=== PATIENT | male | born 1955 | race Caucasian/White ===

== ENCOUNTER → 2016-09-24 | Outpatient (CLI) | payer OTHER ==
[2016-05-20 15:10] VITALS: BP 130/91
[~2016-09-24] MED LIST: ADULT LOW DOSE81 MG PO; CIALIS5 MG PO; COLACE100 MG PO; ENDUR-ACIN500 MG PO; FEROSUL325 M1 PO; FLAX OIL1000 M1 PO; FLEXERIL 1010 MG/TAB PO; FLONASE ALLERG9.9 ML NS; METFOMIN HYDRO850 MG PO; NATURAL SAW PA160 MG PO; NIZATIDINE300 MG PO; PROAIR RESPICL90 MCG INH; SYNTHROID RP0.088 MG PO; XANAX 0.5MG0.5 MG PO; ZYLOPRIM 300MG300 MG PO; ZYRTEC ALLERGY10 MG PO
== END ==
LOC: LAB 07:16
DX: E11.9 Type 2 diabetes mellitus without complications (principal); E03.4 Atrophy of thyroid (acquired); E78.2 Mixed hyperlipidemia; R73.9 Hyperglycemia, unspecified; E11.65 Type 2 diabetes mellitus with hyperglycemia; M1A.09X0 Idiopathic chronic gout, multiple sites, without tophus (tophi); Z80.42 Family history of malignant neoplasm of prostate

== ENCOUNTER → 2016-10-27 | Outpatient (CLI) | payer OTHER ==
[2016-05-20 15:10] VITALS: BP 130/91
== END ==
LOC: LAB 10:07
DX: Z00.00 Encounter for general adult medical examination without abnormal findings (principal); R19.5 Other fecal abnormalities; K21.9 Gastro-esophageal reflux disease without esophagitis; E03.4 Atrophy of thyroid (acquired); E11.9 Type 2 diabetes mellitus without complications; M1A.09X0 Idiopathic chronic gout, multiple sites, without tophus (tophi); J30.1 Allergic rhinitis due to pollen; E78.2 Mixed hyperlipidemia; E66.01 Morbid (severe) obesity due to excess calories

== ENCOUNTER → 2016-11-21 | Outpatient (CLI) | payer OTHER ==
[2016-05-20 15:10] VITALS: BP 130/91
== END ==
LOC: CARDREHAB 07:46
DX: E11.9 Type 2 diabetes mellitus without complications (principal); E66.01 Morbid (severe) obesity due to excess calories
CPT/HCPCS: A9500

== ENCOUNTER → 2016-12-01 | Outpatient (CLI) | payer OTHER ==
[2016-05-20 15:10] VITALS: BP 130/91
== END ==
LOC: RAD 08:26
DX: R50.9 Fever, unspecified (principal); R05 Cough

== ENCOUNTER → 2016-12-22 | Outpatient (CLI) | payer OTHER ==
[2016-05-20 15:10] VITALS: BP 130/91
== END ==
LOC: RAD 08:27
DX: J18.9 Pneumonia, unspecified organism (principal)

== ENCOUNTER → 2017-01-21 | Outpatient (CLI) | payer OTHER ==
[2016-05-20 15:10] VITALS: BP 130/91
== END ==
LOC: LAB 15:36
DX: E11.9 Type 2 diabetes mellitus without complications (principal)

== ENCOUNTER → 2017-07-22 | Outpatient (CLI) | payer OTHER ==
[2016-05-20 15:10] VITALS: BP 130/91
[2017-07-22 10:08] LABS: BASO # 0.1 (0.02-0.10); EOS # 0.2 (0.04-0.40); EOS % 3.3 % (0.0-4.0); HEMATOCRIT 45.1 % (42.0-52.0); HEMOGLOBIN 14.1 g/dL (13.5-18.0); LYMPH# 1.3 (1.50-4.00); MEAN CELL VOLUME 82 fl (78-100); MEAN CORPUSCULAR HEMOGLOBIN 26 pg (27-31); MEAN CORPUSCULAR HGB CONC 31 g/dL (33-37); MEAN PLATELET VOLUME 9.9 fl (7.4-10.4); MONO # 0.6 (0.20-0.80); NEU # 3.3 (1.40-6.50); PLATELET COUNT 221 K/mm3 (130-400); RED BLOOD COUNT 5.49 M/mm3 (4.20-5.60); RED CELL DISTRIBUTION WIDTH 16.4 % (11.5-14.5); WHITE BLOOD COUNT 5.4 K/mm3 (4.8-10.8)
[2017-07-22 10:26] LABS: ALBUMIN 4.2 g/dL (3.5-5.0); BUN/CREATININE RATIO 13.2 (6.0-26.0); CALCIUM 9.4 mg/dL (8.4-10.2); POTASSIUM 4.3 mmol/L (3.6-5.0); TOTAL BILIRUBIN 0.4 mg/dL (0.2-1.3); TOTAL PROTEIN 7.6 g/dL (6.3-8.2)
[2017-07-23 00:48] LABS: FOLATE (FOLIC ACID) 11.2 ng/mL (7.0-31.4)
== END ==
LOC: LAB 09:51
PROVIDERS: Nurse Practitioner Family
DX: R41.3 Other amnesia (principal); E03.4 Atrophy of thyroid (acquired); E11.9 Type 2 diabetes mellitus without complications; R53.81 Other malaise

== ENCOUNTER → 2017-10-09 | Outpatient (CLI) | payer OTHER ==
[~2017-10-09] VITALS: Ht 185.4 cm; Wt 124.5 kg
[2017-10-09 14:30] LABS: HEMATOCRIT 41.9 % (42.0-52.0); MEAN PLATELET VOLUME 9.8 fl (7.4-10.4); RED BLOOD COUNT 5.17 M/mm3 (4.20-5.60); RED CELL DISTRIBUTION WIDTH 14.9 % (11.5-14.5); WHITE BLOOD COUNT 6.4 K/mm3 (4.8-10.8)
[2017-10-09 14:45] VITALS: BP 129/77
[2017-10-09 16:24] LABS: POTASSIUM 3.9 mmol/L (3.6-5.0)
== END ==
LOC: AMSURD 14:15
PROVIDERS: Nurse Practitioner Family
DX: R42 Dizziness and giddiness (principal)

== ENCOUNTER → 2018-05-10 | Outpatient (CLI) | payer OTHER ==
[2017-10-09 14:45] VITALS: BP 129/77
== END ==
LOC: RAD 14:43
DX: R05 Cough (principal); R50.9 Fever, unspecified

== ENCOUNTER → 2019-05-09 | Outpatient (CLI) | payer OTHER ==
[2017-10-09 14:45] VITALS: BP 129/77
[2019-05-09 08:41] LABS: ALBUMIN 3.8 g/dL (3.4-4.8); POTASSIUM 4.3 mmol/L (3.5-5.1)
[2019-05-09 08:42] LABS: CALCIUM 9.2 mg/dL (8.3-10.5)
[2019-05-09 08:43] LABS: TOTAL PROTEIN 6.5 g/dL (6.2-8.1)
[2019-05-09 08:45] LABS: TOTAL BILIRUBIN 0.5 mg/dL (0.2-1.2)
[2019-05-09 11:08] LABS: EOS # 0.2 (0.04-0.40); EOS % 4.3 % (0.0-4.0); HEMATOCRIT 43.6 % (42.0-52.0); HEMOGLOBIN 13.8 g/dL (13.5-18.0); LYMPH# 1.4 (1.50-4.00); MEAN CELL VOLUME 85 fl (78-100); MEAN CORPUSCULAR HEMOGLOBIN 27 pg (27-31); MEAN CORPUSCULAR HGB CONC 32 g/dL (33-37); MEAN PLATELET VOLUME 11.6 fl (7.4-10.4); MONO # 0.5 (0.20-0.80); NEU # 2.7 (1.40-6.50); PLATELET COUNT 187 K/mm3 (130-400); RED BLOOD COUNT 5.14 M/mm3 (4.20-5.60); RED CELL DISTRIBUTION WIDTH 15.3 % (11.5-14.5); WHITE BLOOD COUNT 4.9 K/mm3 (4.8-10.8)
== END ==
LOC: LAB 07:38
PROVIDERS: Family Medicine
DX: Z12.5 Encounter for screening for malignant neoplasm of prostate (principal); E11.9 Type 2 diabetes mellitus without complications; M1A.09X0 Idiopathic chronic gout, multiple sites, without tophus (tophi); E78.2 Mixed hyperlipidemia; D59.8 Other acquired hemolytic anemias; E03.4 Atrophy of thyroid (acquired)

== ENCOUNTER → 2019-07-29 | Outpatient (CLI) | payer MEDICARE ==
[2017-10-09 14:45] VITALS: BP 129/77
== END ==
LOC: LAB 11:15
DX: E11.9 Type 2 diabetes mellitus without complications (principal); J20.8 Acute bronchitis due to other specified organisms

== ENCOUNTER → 2019-11-07 | Outpatient (CLI) | payer MEDICARE ==
[2017-10-09 14:45] VITALS: BP 129/77
== END ==
LOC: LAB 10:28
DX: E11.9 Type 2 diabetes mellitus without complications (principal)

== ENCOUNTER → 2020-03-05 | Outpatient (CLI) | payer MEDICARE ==
[2017-10-09 14:45] VITALS: BP 129/77
== END ==
LOC: LAB 12:18
DX: E11.9 Type 2 diabetes mellitus without complications (principal)

== ENCOUNTER → 2020-03-07 | Outpatient (CLI) | payer MEDICARE ==
[2017-10-09 14:45] VITALS: BP 129/77
[2020-03-07 17:17] LABS: POTASSIUM 4.4 mmol/L (3.5-5.1)
[2020-03-07 17:18] LABS: CALCIUM 9.5 mg/dL (8.3-10.5)
== END ==
LOC: LAB 16:58
PROVIDERS: Family Medicine
DX: E11.9 Type 2 diabetes mellitus without complications (principal)

== ENCOUNTER → 2020-06-11 | Outpatient (CLI) | payer MEDICARE ==
[2017-10-09 14:45] VITALS: BP 129/77
[2020-06-11 09:07] LABS: POTASSIUM 4.7 mmol/L (3.5-5.1)
[2020-06-11 09:08] LABS: ALBUMIN 3.9 g/dL (3.4-4.8); CALCIUM 8.9 mg/dL (8.3-10.5)
[2020-06-11 09:10] LABS: TOTAL PROTEIN 6.4 g/dL (6.2-8.1)
[2020-06-11 09:11] LABS: TOTAL BILIRUBIN 0.7 mg/dL (0.2-1.2)
== END ==
LOC: LAB 08:03
PROVIDERS: Family Medicine
DX: E78.5 Hyperlipidemia, unspecified (principal); E11.9 Type 2 diabetes mellitus without complications; E03.4 Atrophy of thyroid (acquired); M1A.00X0 Idiopathic chronic gout, unspecified site, without tophus (tophi)

== ENCOUNTER 2020-07-05 18:11 | Emergency (ER) | payer MEDICARE ==
[2017-10-09 14:45] VITALS: BP 129/77
[~2020-07-05] VITALS: Ht 185.4 cm; Wt 124.5 kg
== END 2020-07-05 18:22 | disposition left against medical advice (07) ==
LOC: ED 18:11
DX: T17.228A Food in pharynx causing other injury, initial encounter (principal)

== ENCOUNTER → 2020-09-07 | Outpatient (CLI) | payer MEDICARE ==
[2017-10-09 14:45] VITALS: BP 129/77
== END ==
LOC: LAB 07:38
DX: Z12.5 Encounter for screening for malignant neoplasm of prostate (principal); E11.9 Type 2 diabetes mellitus without complications

== ENCOUNTER → 2020-12-10 | Outpatient (CLI) | payer OTHER | LOC: LAB 11:06 | DX: E11.9 Type 2 diabetes mellitus without complications (principal) ==

== ENCOUNTER → 2021-05-28 | Outpatient (CLI) | payer OTHER ==
[2021-05-28 08:37] LABS: POTASSIUM 4.6 mmol/L (3.5-5.1)
[2021-05-28 08:38] LABS: CALCIUM 9.9 mg/dL (8.3-10.5)
[2021-05-28 08:39] LABS: TOTAL PROTEIN 6.7 g/dL (6.2-8.1)
[2021-05-28 08:41] LABS: TOTAL BILIRUBIN 0.7 mg/dL (0.2-1.2)
== END ==
LOC: LAB 05-27 08:47
PROVIDERS: Family Medicine
DX: Z12.5 Encounter for screening for malignant neoplasm of prostate (principal); M1A.00X0 Idiopathic chronic gout, unspecified site, without tophus (tophi); E78.5 Hyperlipidemia, unspecified; E11.9 Type 2 diabetes mellitus without complications

== ENCOUNTER → 2021-08-27 | Outpatient (CLI) | payer OTHER | LOC: LAB 08:05 | DX: E03.4 Atrophy of thyroid (acquired) (principal); E78.5 Hyperlipidemia, unspecified; E11.9 Type 2 diabetes mellitus without complications; M1A.00X0 Idiopathic chronic gout, unspecified site, without tophus (tophi) ==

== ENCOUNTER → 2021-12-02 | Outpatient (CLI) | payer OTHER | LOC: LAB 14:39 | DX: Z12.5 Encounter for screening for malignant neoplasm of prostate (principal); E03.4 Atrophy of thyroid (acquired); E78.5 Hyperlipidemia, unspecified; E11.9 Type 2 diabetes mellitus without complications ==

== ENCOUNTER → 2022-06-20 | Outpatient (CLI) | payer OTHER | LOC: PT 08:59 → CARDREHAB 09:45 | DX: Z00.00 Encounter for general adult medical examination without abnormal findings (principal); Z13.6 Encounter for screening for cardiovascular disorders; I10 Essential (primary) hypertension; E11.36 Type 2 diabetes mellitus with diabetic cataract; Z68.36 Body mass index [BMI] 36.0-36.9, adult | CPT/HCPCS: A9500 ==

== ENCOUNTER → 2022-07-22 | Outpatient (CLI) | payer MEDICARE | LOC: RAD 10:55 | DX: R94.31 Abnormal electrocardiogram [ECG] [EKG] (principal); R00.0 Tachycardia, unspecified ==

== ENCOUNTER → 2023-04-22 | Outpatient (CLI) | payer MEDICARE | LOC: RAD 10:47 | DX: N43.3 Hydrocele, unspecified (principal); N50.89 Other specified disorders of the male genital organs ==

== ENCOUNTER → 2023-07-20 | Outpatient (CLI) | payer MEDICARE, MEDICAID | LOC: LAB 11:15 | DX: U07.1 COVID-19 (principal); R05.9 Cough, unspecified ==

== ENCOUNTER → 2024-06-02 | Outpatient (CLI) | payer MEDICARE | LOC: LAB 09:47 | DX: R06.00 Dyspnea, unspecified (principal); Z20.822 Contact with and (suspected) exposure to COVID-19 ==

== ENCOUNTER → 2024-06-16 | Outpatient (CLI) | payer OTHER ==
[2024-06-16 15:11] LABS: CALCIUM 9.8 mg/dL (8.3-10.5)
[2024-06-16 22:56] LABS: HEPATITIS C VIRUS ANTIBODY Nonreactive (Nonreactiv)
[2024-06-16 23:20] LABS: CREATININE OTHER SOURCE 35 mg/dL (47-110)
== END ==
LOC: LAB 13:52
PROVIDERS: Family Medicine
DX: Z12.5 Encounter for screening for malignant neoplasm of prostate (principal); Z11.59 Encounter for screening for other viral diseases; Z11.4 Encounter for screening for human immunodeficiency virus [HIV]; E11.9 Type 2 diabetes mellitus without complications; M47.816 Spondylosis without myelopathy or radiculopathy, lumbar region; E78.5 Hyperlipidemia, unspecified; E03.4 Atrophy of thyroid (acquired); M54.50 Low back pain, unspecified; R00.8 Other abnormalities of heart beat